=== PATIENT | female | born 1995 | race Caucasian/White ===

== ENCOUNTER → 2017-07-31 12:09 | Outpatient (CLI) | payer OTHER | END | disposition home or self-care (01) | LOC: LAB 12:09 | DX: E83.01 Wilson's disease (principal) ==

== ENCOUNTER → 2018-02-17 | Outpatient (CLI) | payer OTHER | END | disposition home or self-care (01) | LOC: LAB 09:51 | DX: E83.01 Wilson's disease (principal) ==

== ENCOUNTER 2018-12-22 17:50 | Outpatient (CLI) | payer OTHER | END 2018-12-22 17:58 | disposition home or self-care (01) | LOC: LAB 17:50 | DX: E83.01 Wilson's disease (principal) ==

== ENCOUNTER → 2019-08-15 12:33 | Outpatient (CLI) | payer OTHER | END | disposition home or self-care (01) | LOC: LAB 12:33 | DX: R05 Cough (principal) ==

== ENCOUNTER 2020-01-12 08:11 | Outpatient (CLI) | payer OTHER | END 2020-01-12 13:38 | disposition home or self-care (01) | LOC: LAB 08:11 | PROVIDERS: ATTEND Anesthesiology | DX: E83.01 Wilson's disease (principal); Z13.89 Encounter for screening for other disorder ==

== ENCOUNTER 2020-02-18 13:02 | Outpatient (CLI) | payer OTHER | END 2020-02-18 15:01 | disposition home or self-care (01) | LOC: LAB 13:02 | PROVIDERS: ATTEND Anesthesiology | DX: N39.0 Urinary tract infection, site not specified (principal) ==

== ENCOUNTER 2022-03-15 08:00 | Outpatient (CLI) | payer OTHER | END 2022-03-15 08:05 | disposition home or self-care (01) | LOC: PPH VACUNA 08:00 | PROVIDERS: ATTEND Emergency Medicine Pediatric Emergency Medicine | DX: Z23 Encounter for immunization (principal) ==

== ENCOUNTER → 2022-04-10 09:04 | Outpatient (CLI) | payer OTHER | END | disposition home or self-care (01) | LOC: LAB 04-09 12:12 | PROVIDERS: ATTEND Anesthesiology | DX: E83.01 Wilson's disease (principal) ==

== ENCOUNTER 2022-04-10 09:13 | Outpatient (CLI) | payer OTHER | END 2022-04-10 09:23 | disposition home or self-care (01) | LOC: PPH VACUNA 09:13 | PROVIDERS: ATTEND Emergency Medicine Pediatric Emergency Medicine | DX: Z23 Encounter for immunization (principal) ==

== ENCOUNTER 2022-09-18 07:58 | Outpatient (CLI) | payer OTHER | END 2022-09-18 08:25 | disposition home or self-care (01) | LOC: LAB 07:58 | DX: Z20.820 Contact with and (suspected) exposure to varicella (principal); Z01.84 Encounter for antibody response examination; Z11.59 Encounter for screening for other viral diseases; Z11.1 Encounter for screening for respiratory tuberculosis; E83.01 Wilson's disease ==

== ENCOUNTER 2022-09-19 08:47 | Outpatient (CLI) | payer OTHER | END 2022-09-19 13:41 | disposition home or self-care (01) | LOC: LAB 08:47 | DX: D72.818 Other decreased white blood cell count (principal); D50.0 Iron deficiency anemia secondary to blood loss (chronic); E88.09 Other disorders of plasma-protein metabolism, not elsewhere classified; R70.0 Elevated erythrocyte sedimentation rate; D51.1 Vitamin B12 deficiency anemia due to selective vitamin B12 malabsorption with proteinuria ==

== ENCOUNTER 2022-09-19 08:51 | Outpatient (CLI) | payer OTHER | END 2022-09-19 09:41 | disposition home or self-care (01) | LOC: LAB 08:51 → SONOGRAMA 08:51 → LAB 09:41 | PROVIDERS: ATTEND Obstetrics & Gynecology | DX: R16.1 Splenomegaly, not elsewhere classified (principal); R10.30 Lower abdominal pain, unspecified ==

== ENCOUNTER → 2024-04-09 04:00 | Outpatient (CLI) | payer OTHER | END | disposition home or self-care (01) | LOC: PPH VACUNA 04:00 | PROVIDERS: ATTEND Emergency Medicine Pediatric Emergency Medicine | DX: Z23 Encounter for immunization (principal) ==

== ENCOUNTER 2024-11-23 07:28 | Outpatient (CLI) | payer OTHER ==
[2024-11-23 08:39] LABS: BASO % 0.3 % (0.1-1.2); EOS # 0.36 (0.04-0.54); EOS % 10.2 % (0.7-7.0); HEMATOCRIT 38.2 % (34.1-44.9); HEMOGLOBIN 12.9 g/dL (11.2-15.7); LYMPH # 1.39 (1.18-3.74); LYMPH % 39.5 % (19.3-53.1); MEAN CORPUSCULAR HEMOGLOBIN 28.7 pg (25.6-32.2); MONO % 11.4 % (4.7-12.5); NEUT # 1.35 (1.56-6.13); NEUT % 38.3 % (34.0-71.1); PLATELET COUNT 149 K/uL (163-369); RED BLOOD COUNT 4.49 M/uL (3.93-5.22); RED CELL DISTRIBUTION WIDTH 13.2 % (11.6-14.4)
[2024-11-23 08:41] LABS: PH,URINE 6.5 (5.0-8.0); URINE APPEARANCE Clear; URINE BILIRRUBIN Negative (NEGATIVE); URINE BLOOD Negative; URINE COLOR Yellow; URINE GLUCOSE Negative (NEGATIVE); URINE KETONE Negative (NEGATIVE); URINE LEUKOCYTE Negative; URINE NITRATE Negative; URINE PROTEIN Negative (NEGATIVE); URINE UROBILINOGEN 0.2 E.U./dl
[2024-11-23 08:46] LABS: URINE BACTERIA 597.2 uL (0.0-1933); URINE EPITHELIAL CELLS 2.3 uL (0.0-38.8)
[2024-11-23 08:59] LABS: URINE RBC 1.6 uL (0.0-20.8)
[2024-11-23 09:50] LABS: ALBUMIN 3.3 gm/dL (3.4-5.0); BILIRUBIN TOTAL 0.41 mg/dL (0.3-1.2); CALCIUM 8.4 mg/dL (8.5-10.1); CHOL HDL RATIO 3.1 (0-5.0); CREATININE SERUM 0.72 mg/dL (0.55-1.02); GFR 96.45; GLOBULINA 3.1 G/DL (2.4-3.5); POTASSIUM 3.5 mEq/L (3.5-5.1); T4 FREE 0.9 NG/ML (0.76-1.46); TOTAL PROTEIN 6.4 gm/dL (6.4-8.2); TSH 1.15 uIU/mL (0.358-3.74)
== END 2024-11-23 23:00 | disposition home or self-care (01) ==
LOC: LAB 07:28
DX: R93.2 Abnormal findings on diagnostic imaging of liver and biliary tract (principal); E83.01 Wilson's disease; K74.02 Hepatic fibrosis, advanced fibrosis; E55.9 Vitamin D deficiency, unspecified; E78.9 Disorder of lipoprotein metabolism, unspecified; E03.9 Hypothyroidism, unspecified; N39.0 Urinary tract infection, site not specified

== ENCOUNTER 2024-11-24 07:28 | Outpatient (CLI) | payer OTHER | END 2024-11-24 15:04 | disposition home or self-care (01) | LOC: LAB 07:28 | DX: R93.2 Abnormal findings on diagnostic imaging of liver and biliary tract (principal); E83.01 Wilson's disease; K74.02 Hepatic fibrosis, advanced fibrosis ==

== ENCOUNTER 2025-01-25 06:51 | Outpatient (CLI) | payer OTHER ==
[2025-01-25 07:55] LABS: ob NEGATIVE (NEGATIVE)
== END 2025-01-25 07:04 | disposition home or self-care (01) ==
LOC: LAB 06:51
DX: A07.1 Giardiasis [lambliasis] (principal)